=== PATIENT | female | born 1960 | race Caucasian/White ===

== ENCOUNTER 2020-12-09 10:13 | Emergency (ER) | payer OTHER ==
[~2020-12-09] VITALS: Ht 170.1 cm; Wt 90.3 kg
[~2020-12-09 10:13] MED LIST: AMOXICILLIN500 MG PO; PREDNICOT20 MG PO
[2020-12-09] MEDS ORDERED: TYLENOL325 M1 PO (11:21)
[2020-12-09] MEDS ORDERED: NAPROXEN250 MG PO (11:21)
== END 2020-12-09 11:29 | disposition home or self-care (01) ==
LOC: ED 10:13
DX: S79.911A Unspecified injury of right hip, initial encounter (principal); S79.921A Unspecified injury of right thigh, initial encounter; Z79.899 Other long term (current) drug therapy; Z98.890 Other specified postprocedural states; W19.XXXA Unspecified fall, initial encounter; Y93.89 Activity, other specified; Y92.89 Other specified places as the place of occurrence of the external cause; Y99.8 Other external cause status

== ENCOUNTER 2024-10-03 02:42 | Emergency (ER) | payer BC ==
[~2024-10-03] VITALS: Ht 170.1 cm; Wt 81.6 kg
[~2024-10-03 02:42] MED LIST changes: +NAPROXEN250 MG PO; +TYLENOL325 M1 PO
[2024-10-03] MEDS ORDERED: SODIUM CHLORIDE 0.9% 1,000 ML IV ONE (03:00)
[2024-10-03] MEDS ORDERED: Ondansetron Hydrochloride 4 MG/2 ML VIAL IV ONE ×2 (03:00→04:45)
[2024-10-03 03:26] LABS: BASO % 0.5 % (0.0-1.0); EOS # 0.2 10*3/uL (0.0-0.4); EOS % 3.1 % (1.0-4.0); HEMATOCRIT 42.3 % (37.0-47.0); MEAN CELL VOLUME 83.6 fl (81.0-99.0); MEAN CORPUSCULAR HGB 27.9 pg (27.0-31.0); MEAN CORPUSCULAR HGB CONC 33.3 g/dl (33.0-37.0); MEAN PLATELET VOLUME 8.8 fl (9.6-12.3); MONO # 0.4 10*3/uL (0.1-1.0); MONO % 4.6 % (3.0-9.0); NEUT # 5.8 10*3/uL (2.3-7.9); NEUT % 74.4 % (47.0-73.0); PLATELET COUNT AUTOMATED 314 10*3/uL (130-400); RED BLOOD COUNT 5.06 10*6/uL (4.10-5.10); RED CELL DISTRI WIDTH 14.1 % (0-14.5); WHITE BLOOD COUNT 7.8 10*3/uL (4.8-10.8)
[2024-10-03 03:49] LABS: ALKALINE PHOSPHATASE 123 U/L (46-116); BUN 19 mg/dl (9-23); CHLORIDE 104 mmol/L (98-107); LIPASE 39 U/L (12-53); POTASSIUM 4.1 mmol/L (3.4-5.1); SGPT/ALT 10 U/L (5-49); TOTAL PROTEIN 6.6 gm/dL (6.0-8.0)
[2024-10-03] MEDS ORDERED: HYDROmorphONE Hydrochloride 0.5 MG/0.5 ML SYRINGE IV ONE ×2 (04:45→05:40)
[2024-10-03] MEDS ORDERED: Ondansetron4 MG PO (05:40)
== END 2024-10-03 05:58 | disposition home or self-care (01) ==
LOC: ED 02:42
PROVIDERS: Internal Medicine
DX: K52.9 Noninfective gastroenteritis and colitis, unspecified (principal); R11.2 Nausea with vomiting, unspecified; Z79.899 Other long term (current) drug therapy; Z98.890 Other specified postprocedural states